=== PATIENT | female | born 1955 | race Caucasian/White ===

== ENCOUNTER → 2021-10-14 | Outpatient (CLI) | payer OTHER ==
[~2021-10-14] MED LIST: ALENDRONATE SOD35 MG PO; AMPDEX30CR; CLON.5; DULO60 PO; EUTHYROX88 MCG PO; FLONASE ALLERG9.9 M2; FLUTICASONE-SA1 EAC1 INH; Hydroxyzine HCl50 MG; LISI5; OMEP20ER PO; ONDA4ODT; OXYACE5T PO; Vitamin D1000 UNI1 PO
[2021-10-15 15:11] LABS: HPV 16 Negative (Negative); HPV 18 Negative (Negative); HPV OTHER HR TYPES Negative (Negative)
== END | disposition home or self-care (01) ==
LOC: LAB 15:45 → LAB SHORT 15:45
PROVIDERS: Family Medicine
DX: Z01.419 Encounter for gynecological examination (general) (routine) without abnormal findings (principal)
CPT/HCPCS: 87624; G0123

== ENCOUNTER 2021-10-16 06:23 | Day surgery (SDC) | payer OTHER ==
[~2021-10-16] VITALS: Ht 154.9 cm; Wt 71.3 kg
[~2021-10-16 06:23] MED LIST changes: -ALENDRONATE SOD35 MG PO; -AMPDEX30CR; -CLON.5; -DULO60 PO; -EUTHYROX88 MCG PO; -FLONASE ALLERG9.9 M2; -FLUTICASONE-SA1 EAC1 INH; -Hydroxyzine HCl50 MG; -LISI5; -OMEP20ER PO; -ONDA4ODT; -Vitamin D1000 UNI1 PO
[2021-10-16] MEDS ORDERED: Vitamin D1000 UNI1 PO (07:10)
[2021-10-16] MEDS ORDERED: ALENDRONATE SOD35 MG PO (07:10)
[2021-10-16] MEDS ORDERED: CLON.5 (07:11)
[2021-10-16] MEDS ORDERED: AMPDEX30CR (07:11)
[2021-10-16] MEDS ORDERED: DULO60 PO (07:11)
[2021-10-16] MEDS ORDERED: FLUTICASONE-SA1 EAC1 INH (07:12)
[2021-10-16] MEDS ORDERED: FLONASE ALLERG9.9 M2 (07:13)
[2021-10-16] MEDS ORDERED: LISI5 (07:15)
[2021-10-16] MEDS ORDERED: Hydroxyzine HCl50 MG (07:15)
[2021-10-16] MEDS ORDERED: EUTHYROX88 MCG PO (07:15)
[2021-10-16] MEDS ORDERED: OMEP20ER PO (07:16)
[2021-10-16] MEDS ORDERED: ONDA4ODT (07:16)
--- NOTE | 2021-10-16 07:39 | NUR ---
10/16/21 0739 Kaya Lowery S ATTEMPTS X3, ONE IN LEFT HAND, ONE IN LFA, WITH SUCCUSS IN LAC.
--- NOTE | 2021-10-16 08:28 | NUR ---
10/16/21 0828 Chanel Alfonso 1MG OF EPI ADDED TO FIRST BAG OF LR USED FOR JOINT IRRIGATION. 0.05ML OF EPI 1MG/ML ADDED TO 10ML OF BUPIVICAINE 0.5% TO CREATE A SOLUTION OF BUP[IVICAINE 0.5% WITH EPI 1:200,000.
== END 2021-10-16 10:10 | disposition home or self-care (01) ==
LOC: ORSCSDS 06:23
PROVIDERS: Orthopaedic Surgery
PROC: 0SBD4ZZ Excision of Left Knee Joint, Percutaneous Endoscopic Approach (ICD-10-PCS; principal; 2021-10-16 07:30)
DX: S83.232A Complex tear of medial meniscus, current injury, left knee, initial encounter (principal); M94.262 Chondromalacia, left knee; I10 Essential (primary) hypertension; Z87.891 Personal history of nicotine dependence; G47.33 Obstructive sleep apnea (adult) (pediatric); E03.9 Hypothyroidism, unspecified; M79.7 Fibromyalgia; Z79.899 Other long term (current) drug therapy; E78.5 Hyperlipidemia, unspecified
CPT/HCPCS: A9270; J0171; J0690; J1100; J2250; J2370; J2405; J2704; J3010; J7120

== ENCOUNTER → 2021-12-02 | Outpatient (CLI) | payer OTHER ==
[~2021-12-02] MED LIST changes: +ALENDRONATE SOD35 MG PO; +AMPDEX30CR; +CLON.5; +DULO60 PO; +EUTHYROX88 MCG PO; +FLONASE ALLERG9.9 M2; +FLUTICASONE-SA1 EAC1 INH; +Hydroxyzine HCl50 MG; +LISI5; +OMEP20ER PO; +ONDA4ODT; +Vitamin D1000 UNI1 PO
== END | disposition home or self-care (01) ==
LOC: LAB SHORT 16:24
DX: E03.9 Hypothyroidism, unspecified (principal)
CPT/HCPCS: 84443

== ENCOUNTER → 2022-08-12 | Outpatient (CLI) | payer OTHER ==
[2022-08-12 11:39] LABS: BASOPHILS ABSOLUTE AUTO 0.07 K/mm3 (0.00-0.23); BASOPHILS PERCENT AUTO 1 % (0-2); EOSINOPHILS ABSOLUTE AUTO 0.11 K/mm3 (0.00-0.68); EOSINOPHILS PERCENT AUTO 2 % (0-6); Hematocrit 43.4 % (33.0-51.0); Hemoglobin 14.9 g/dL (11.5-16.0); IMMATURE GRAN ABSOLUTE AUTO 0.01 K/mm3 (0.00-0.10); IMMATURE GRAN PERCENT AUTO 0 % (0-1); LYMPHOCYTES PERCENT AUTO 23 % (21-46); MONOCYTES ABSOLUTE AUTO 0.61 K/mm3 (0.16-1.47); MONOCYTES PERCENT AUTO 9 % (4-13); Mean Corpuscular HGB 31.2 pg (26.0-34.0); Mean Corpuscular HGB Conc 34.3 g/dL (31.5-36.5); Mean Corpuscular Volume 91 fL (80-100); Mean Platelet Volume 8.6 fL (9.1-12.4); NEUTROPHILS ABSOLUTE AUTO 4.23 K/mm3 (1.96-9.15); NEUTROPHILS PERCENT AUTO 65 % (41-73); Platelet Count 326 K/mm3 (150-400); RDW Coefficient Variation 12.3 % (11.7-14.2); RDW Standard Deviation 41.1 fL (35.1-46.3); Red Blood Cell Count 4.78 M/mm3 (3.80-5.20); White Blood Cell Count 6.53 K/mm3 (4.00-11.30)
[2022-08-12 12:15] LABS: Albumin, Blood 3.8 g/dL (3.4-5.0); Albumin/Globulin Ratio 1.2 (0.8-1.8); Bilirubin, Total 0.4 mg/dL (0.1-1.0); Bun/Creatinine Ratio 19.1 (12.0-20.0); Calcium, Blood 10.4 mg/dL (8.5-10.1); Creatinine, Blood 0.73 mg/dL (0.40-1.00); Globulin, Blood 3.2 g/dL (2.2-4.0)
== END | disposition home or self-care (01) ==
LOC: LAB 11:31 → LAB SHORT 11:31
PROVIDERS: Physician Assistant
DX: N39.0 Urinary tract infection, site not specified (principal); R10.9 Unspecified abdominal pain
CPT/HCPCS: 80053; 83690; 85025

== ENCOUNTER → 2022-12-08 | Outpatient (CLI) | payer OTHER ==
[2022-12-08 14:53] LABS: BASOPHILS ABSOLUTE AUTO 0.12 K/mm3 (0.00-0.23); BASOPHILS PERCENT AUTO 1 % (0-2); EOSINOPHILS ABSOLUTE AUTO 0.21 K/mm3 (0.00-0.68); EOSINOPHILS PERCENT AUTO 3 % (0-6); Hematocrit 43.5 % (33.0-51.0); Hemoglobin 14.4 g/dL (11.5-16.0); IMMATURE GRAN ABSOLUTE AUTO 0.02 K/mm3 (0.00-0.10); IMMATURE GRAN PERCENT AUTO 0 % (0-1); LYMPHOCYTES ABSOLUTE AUTO 1.67 K/mm3 (0.84-5.20); LYMPHOCYTES PERCENT AUTO 20 % (21-46); MONOCYTES ABSOLUTE AUTO 0.87 K/mm3 (0.16-1.47); MONOCYTES PERCENT AUTO 10 % (4-13); Mean Corpuscular HGB 30.9 pg (26.0-34.0); Mean Corpuscular HGB Conc 33.1 g/dL (31.5-36.5); Mean Corpuscular Volume 93 fL (80-100); Mean Platelet Volume 8.7 fL (9.1-12.4); NEUTROPHILS PERCENT AUTO 66 % (41-73); Platelet Count 376 K/mm3 (150-400); RDW Coefficient Variation 12.3 % (11.7-14.2); RDW Standard Deviation 42.6 fL (35.1-46.3); Red Blood Cell Count 4.66 M/mm3 (3.80-5.20); White Blood Cell Count 8.49 K/mm3 (4.00-11.30)
[2022-12-08 19:05] LABS: Albumin, Blood 3.8 g/dL (3.4-5.0); Albumin/Globulin Ratio 1.1 (0.8-1.8); Bilirubin, Total 0.3 mg/dL (0.1-1.0); Bun/Creatinine Ratio 16.6 (12.0-20.0); Calcium, Blood 10.3 mg/dL (8.5-10.1); Creatinine, Blood 0.84 mg/dL (0.40-1.00); Free Thyroxine 1.16 ng/dL (0.70-1.60); Globulin, Blood 3.4 g/dL (2.2-4.0); Potassium, Blood 3.8 mmol/L (3.5-5.5); Thyroid Stimulating Hormone 0.362 uIU/mL (0.360-4.800); Total Protein, Blood 7.2 g/dL (6.4-8.2)
== END ==
LOC: LAB 13:40 → LAB SHORT 13:40
PROVIDERS: Family Medicine
DX: E03.9 Hypothyroidism, unspecified (principal); R41.89 Other symptoms and signs involving cognitive functions and awareness; Z79.899 Other long term (current) drug therapy
CPT/HCPCS: 80053; 82607; 82746; 84439; 84443; 85025; 85651; 86592

== ENCOUNTER 2023-02-07 09:49 | Day surgery (SDC) | payer OTHER ==
[~2023-02-07] VITALS: Ht 154.9 cm; Wt 68.3 kg
[2023-02-07 10:37] VITALS: BP 150/94
[2023-02-07] MEDS ORDERED: PANTOPRAZOLE SO40 M2 PO (10:42)
--- NOTE | 2023-02-07 13:19 | NUR ---
02/07/23 1319 Tory Fairchild PILLOW UNDER HEAD, PILLOW UNDER HEAD, BOTH ARMS SECURED ON PADDED ARM BOARDS.
== END 2023-02-07 14:00 | disposition home or self-care (01) ==
LOC: ORSCSDS 09:49
PROVIDERS: Otolaryngology
PROC: 0HB3XZZ Excision of Left Ear Skin, External Approach (ICD-10-PCS; principal; 2023-02-07 11:30)
DX: D23.22 Other benign neoplasm of skin of left ear and external auricular canal (principal); I10 Essential (primary) hypertension; G47.33 Obstructive sleep apnea (adult) (pediatric); M79.7 Fibromyalgia; Z79.899 Other long term (current) drug therapy
CPT/HCPCS: 88305; J1100; J2250; J2704

== ENCOUNTER → 2023-03-15 | Outpatient (CLI) | payer OTHER ==
[~2023-03-15] MED LIST changes: +PANTOPRAZOLE SO40 M2 PO
[2023-03-30 10:42] LABS: HPV GENOTYPE 16 Not Detected; HPV GENOTYPE 18 Not Detected; HPV HIGH RISK Not Detected; HPV SOURCE Cervical
== END ==
LOC: LAB SHORT 16:30 → LAB 16:30
PROVIDERS: Family Medicine
DX: Z01.419 Encounter for gynecological examination (general) (routine) without abnormal findings (principal)
CPT/HCPCS: 87624; G0123

== ENCOUNTER → 2023-03-25 | Outpatient (CLI) | payer OTHER ==
[2023-03-30 08:32] LABS: APTIMA MEDIA TYPE Urine; C. TRACHOMATIS BY TMA Negative (Negative); N. GONORRHOEAE BY TMA Negative (Negative); SPECIMEN SOURCE Urine
== END ==
LOC: LAB SHORT 17:07 → LAB 17:07
PROVIDERS: Emergency Medicine
DX: N39.0 Urinary tract infection, site not specified (principal)
CPT/HCPCS: 87086; 87147; 87491; 87591

== ENCOUNTER → 2023-04-21 | Outpatient (CLI) | payer MEDICARE, OTHER ==
[2023-04-21 15:12] LABS: Source, Urine Voided
[2023-04-21 17:35] LABS: Bacteria Few /hpf; Hyaline Casts 0-2 /lpf (0-2); Red Blood Cells, Urine 0-2 /hpf (0-2); Squamous Epithelial Cells Few /hpf (Few); Transitional Epithelial Cells Rare /hpf (0-Rare)
== END ==
LOC: LAB 11:20 → LAB SHORT 11:20
PROVIDERS: Family Medicine
DX: R30.0 Dysuria (principal)
CPT/HCPCS: 81015; 87086

== ENCOUNTER 2023-08-15 07:46 | Day surgery (SDC) | payer MEDICARE, OTHER ==
[~2023-08-15] VITALS: Ht 149.9 cm; Wt 71.0 kg
[~2023-08-15 07:46] MED LIST changes: -AMPDEX30CR; +AMPDEX30CR PO; -CLON.5; +CLON.5 PO; +DOCU100 PO; -EUTHYROX88 MCG PO; -Hydroxyzine HCl50 MG; +Hydroxyzine HCl50 MG PO; +LEVOTHYROXINE88 MC9 PO; -LISI5; +LISI5 PO; +Lactated Ringer's 1,000 ML IV ONE; -ONDA4ODT; +ONDA4ODT PO
[2023-08-15] MEDS ORDERED: Lidocaine 2%-Epineph 1:200000 20 ML SDV ONE (07:55)
[2023-08-15] MEDS ORDERED: Midazolam HCl 1MG / ML 2ML Vial ONE ×2 (07:56→08:58)
[2023-08-15] MEDS ORDERED: Lactated Ringer's 1,000 ML IV ONE (08:12)
[2023-08-15] MEDS ORDERED: NS 50 ML IV ONE (08:16)
[2023-08-15] MEDS ORDERED: CeFAZolin Sodium 2,000 MG VIAL ONE (08:16)
--- NOTE | 2023-08-15 08:54 | NUR ---
08/15/23 0854 Henrietta Copeland TIME OUT PERFORMED AT 0844 AT BEDSIDE WITH CAESAR PORRAS AND DR BOLDEN. PREOP NERVE BLOCK STARTED AT 0844 AND COMPLETED AT 0850. PT TOLERATED PROCEDURE WELL. SPO2 WITH PATIENT ON 3L O2 VIA NC MONITORED THROUGHOUT PROCEDURE.
[2023-08-15] MEDS ORDERED: propofoL 20 ML IV ONE (09:01)
[2023-08-15 09:27] VITALS: BP 129/66
== END 2023-08-15 10:10 | disposition home or self-care (01) ==
LOC: ORSCSDS 07:46
PROVIDERS: Orthopaedic Surgery
PROC: 0LN70ZZ Release Right Hand Tendon, Open Approach (ICD-10-PCS; principal; 2023-08-15 09:15)
DX: M65.331 Trigger finger, right middle finger (principal); M65.341 Trigger finger, right ring finger; I12.9 Hypertensive chronic kidney disease with stage 1 through stage 4 chronic kidney disease, or unspecified chronic kidney disease; N18.9 Chronic kidney disease, unspecified; F32.A Depression, unspecified; E03.9 Hypothyroidism, unspecified; M79.7 Fibromyalgia; G47.9 Sleep disorder, unspecified; I10 Essential (primary) hypertension; F90.9 Attention-deficit hyperactivity disorder, unspecified type; K21.9 Gastro-esophageal reflux disease without esophagitis; Z79.899 Other long term (current) drug therapy
CPT/HCPCS: J0690; J2250; J2704; J7120

== ENCOUNTER 2024-04-10 15:55 | Observation (INO) | payer MEDICARE, OTHER ==
[~2024-04-10] VITALS: Ht 152.4 cm; Wt 72.4 kg
[~2024-04-10 15:55] MED LIST changes: -Lactated Ringer's 1,000 ML IV ONE
[2024-04-10 16:52] LABS: BASOPHILS ABSOLUTE AUTO 0.02 K/mm3 (0.00-0.23); BASOPHILS PERCENT AUTO 0 % (0-2); EOSINOPHILS ABSOLUTE AUTO 0.03 K/mm3 (0.00-0.68); EOSINOPHILS PERCENT AUTO 1 % (0-6); Hematocrit 42.4 % (33.0-51.0); Hemoglobin 14.7 g/dL (11.5-16.0); IMMATURE GRAN ABSOLUTE AUTO 0.01 K/mm3 (0.00-0.10); IMMATURE GRAN PERCENT AUTO 0 % (0-1); LYMPHOCYTES ABSOLUTE AUTO 1.35 K/mm3 (0.84-5.20); LYMPHOCYTES PERCENT AUTO 30 % (21-46); MONOCYTES ABSOLUTE AUTO 0.46 K/mm3 (0.16-1.47); MONOCYTES PERCENT AUTO 10 % (4-13); Mean Corpuscular HGB 31.7 pg (26.0-34.0); Mean Corpuscular HGB Conc 34.7 g/dL (31.5-36.5); Mean Corpuscular Volume 92 fL (80-100); Mean Platelet Volume 8.9 fL (9.1-12.4); NEUTROPHILS ABSOLUTE AUTO 2.58 K/mm3 (1.96-9.15); NEUTROPHILS PERCENT AUTO 58 % (41-73); Platelet Count 222 K/mm3 (150-400); RDW Coefficient Variation 11.9 % (11.7-14.2); RDW Standard Deviation 40.1 fL (35.1-46.3); Red Blood Cell Count 4.63 M/mm3 (3.80-5.20); White Blood Cell Count 4.45 K/mm3 (4.00-11.30)
[2024-04-10 17:14] LABS: Albumin, Blood 3.4 g/dL (3.4-5.0); Albumin/Globulin Ratio 0.9 (0.8-1.8); Bilirubin, Total 0.4 mg/dL (0.1-1.0); Bun/Creatinine Ratio 9.5 (12.0-20.0); Calcium, Blood 10.2 mg/dL (8.5-10.1); Creatinine, Blood 0.84 mg/dL (0.40-1.00); Globulin, Blood 3.8 g/dL (2.2-4.0); Potassium, Blood 4.1 mmol/L (3.5-5.5); Total Protein, Blood 7.2 g/dL (6.4-8.2)
[2024-04-10 20:02] LABS: Influenza B, PCR NEGATIVE (NEGATIVE); Resp Syncytial Virus, PCR NEGATIVE (NEGATIVE); SARS-Cov-2 (COVID-19) PCR, MMC NEGATIVE (NEGATIVE)
[2024-04-10] MEDS ORDERED: Ipratropium/Albuterol SulF 2.5-0.5MG/3 ML Amp INH ONE ×2 (20:35→23:05)
[2024-04-10] MEDS ORDERED: MethylPREDNISolone Sod Succ 125 MG Vial IV ONE (20:35)
[2024-04-10 21:31] LABS: Source, Urine Clean Catch
[2024-04-10 21:33] LABS: Appearance, Urine Clear (Clear); Bilirubin, Urine Neg (Neg); Blood, Urine Neg (Neg); Color, Urine Amber (P-Yellow); Glucose Qualitative, Urine Neg (Neg); Ketones, Urine Neg (Neg); Leukocyte Esterase, Urine 3+ (Neg); Nitrite, Urine Neg (Neg); Protein, Urine 1+ (Neg); Specific Gravity, Urine 1.015 (1.003-1.022); Urobilinogen, Urine 2+ (Normal)
[2024-04-10 21:39] LABS: Influenza A, PCR POSITIVE (NEGATIVE)
[2024-04-10 21:39] LABS: Bacteria Few /hpf; Red Blood Cells, Urine Not Seen /hpf (0-2); Squamous Epithelial Cells Few /hpf (Few)
[2024-04-10] MEDS ORDERED: CefTRIAXone Sodium 1,000 MG in NS 100 ML IV ONE (21:40)
[2024-04-10] MEDS ORDERED: Oseltamivir Phosphate 75 MG Cap PO ONE (21:50)
[2024-04-10] MEDS ORDERED: Ondansetron HCl 2 MG / ML 2ML Vial IV PRN (23:45)
[2024-04-10] MEDS ORDERED: FLU VACC TS2024-25(6MOS UP)/PF 45 MCG/0.5 ML SYRINGE IM ONE (23:45)
[2024-04-10] MEDS ORDERED: Melatonin 5 MG Tablet PO PRN (23:45)
[2024-04-10] MEDS ORDERED: Albuterol 2.5 MG/3 ML VIAL INH PRN (23:45)
[2024-04-11 00:32] VITALS: BP 125/64
[2024-04-11] MEDS ORDERED: Ipratropium/Albuterol SulF 2.5-0.5MG/3 ML Amp INH SCH (01:00)
[2024-04-11] MEDS ORDERED: Azithromycin 500 MG in NS 250 ML IV SCH (01:01)
[2024-04-11] MEDS ORDERED: ClonazePAM 0.5 MG Tab PO PRN (01:15)
--- NOTE | 2024-04-11 01:18 | NUR ---
PT ARRIVED TO ROOM 362 AT 0025 BY VF CorporationCHAIR UPHOLSTERER. REPORT RECEIVED FROM FRANDY MAYNARD. PT TRANSFERRED TO BED FROM [facility], ON 2 LO2. CONTINENT, SKIN CHECK PERFORMNED.
[2024-04-11] MEDS ORDERED: NS 250 ML IV PRN (01:30)
--- NOTE | 2024-04-11 03:24 | NUR ---
SHIFT SUMMARY PT AOX4, COOPERATIVE, ABLE TO MAKE NEEDS KNOWN. ARRIVED TO ROOM REQUIRING 2L O2, DURING SLEEP, THIS RN HAD TO INCREASE TO 4L TO KEEP O2 AT OR ABOVE 93%. PT WAS VERY ANXIOUS AND TALKATIVE, NOW IS ASLEEP. PT MAIN COMPLAINT TODAY WAS GRANDSON VERBALLY ABUSING PT AT HOME, IS DOCUMENTED IN ASSESSMENT. CONT PULSE OX ACTIVE. PT TRANSFERS SBA WITH WALKER TO BATHROOM. BED IN LOWEST POSITION, CALL LIGHT WITHIN REACH.
[2024-04-11 05:50] LABS: Hematocrit 38.6 % (33.0-51.0); Hemoglobin 13.3 g/dL (11.5-16.0); Mean Corpuscular HGB 31.4 pg (26.0-34.0); Mean Corpuscular HGB Conc 34.5 g/dL (31.5-36.5); Mean Corpuscular Volume 91 fL (80-100); Mean Platelet Volume 9.3 fL (9.1-12.4); Platelet Count 207 K/mm3 (150-400); RDW Coefficient Variation 11.9 % (11.7-14.2); RDW Standard Deviation 39.7 fL (35.1-46.3); Red Blood Cell Count 4.24 M/mm3 (3.80-5.20); White Blood Cell Count 3.33 K/mm3 (4.00-11.30)
[2024-04-11] MEDS ORDERED: Levothyroxine Sodium 0.088 MG Tab PO SCH (06:00)
[2024-04-11] MEDS ORDERED: Pantoprazole Sodium 40 MG Tab PO SCH (06:00)
[2024-04-11 06:43] LABS: BAND PERCENT MAN 8 % (0-8); BASOPHILS PERCENT MAN 0 % (0-2); EOSINOPHILS PERCENT MAN 0 % (0-6); LYMPHOCYTES ABSOLUTE MAN 0.16 K/mm3 (0.84-5.20); LYMPHOCYTES PERCENT MAN 5 % (21-46); MONOCYTES ABSOLUTE MAN 0.09 K/mm3 (0.16-1.47); MONOCYTES PERCENT MAN 3 % (4-13); NEUTROPHILS ABSOLUTE MAN 3.06 K/mm3 (1.96-9.15); SEG NEUTROPHILS PERCENT MAN 84 % (41-73); TOTAL CELLS COUNTED 100
[2024-04-11 07:21] VITALS: BP 137/75
[2024-04-11 08:15] LABS: Albumin/Globulin Ratio 0.8 (0.8-1.8); Bilirubin, Total 0.5 mg/dL (0.1-1.0); Bun/Creatinine Ratio 10.7 (12.0-20.0); Calcium, Blood 9.6 mg/dL (8.5-10.1); Creatinine, Blood 0.75 mg/dL (0.40-1.00); Globulin, Blood 3.8 g/dL (2.2-4.0); Potassium, Blood 4.1 mmol/L (3.5-5.5); Total Protein, Blood 6.8 g/dL (6.4-8.2)
[2024-04-11] MEDS ORDERED: DULoxetine HCL 30 MG Cap DR PO SCH (09:00)
[2024-04-11] MEDS ORDERED: Enoxaparin 40 MG/0.4 ML SYR SC SCH (09:00)
[2024-04-11] MEDS ORDERED: Lisinopril 5 MG Tab PO SCH (09:00)
[2024-04-11] MEDS ORDERED: Cholecalciferol 1000 Unit Tablet (=25MCG) PO SCH (09:00)
[2024-04-11] MEDS ORDERED: Oseltamivir Phosphate 75 MG Cap PO SCH (09:00)
[2024-04-11] MEDS ORDERED: Lactobacil 2-S.Thermo-Bifido 1 1 Cap PO SCH (09:00)
[2024-04-11] MEDS ORDERED: Fluticasone 0.05% Nasal Spray SCH (09:00)
--- NOTE | 2024-04-11 14:56 | NUR ---
SHIFT SUMMARY PT RESTING QUIETLY AT START OF SHIFT. WOKE EASILY FOR CARE. PT IN DROPLET ISO FOR INFLUENZA A. ON 2L N/C; RA AT BASELINE. PT RECEIVING IV ABX AND STEROIDS. LUNGS COARSE THRU OUT. UP WITH 1P ASSIST USING FWW TO BTHRM. MEDICATED FOR C/O ANXIETY X1. DR MOYA IN TO SEE PT THIS AM. ECHO AND BNP ORDERED. PT RESTING QUIETLY AT THIS TIME. CALL LT IN REACH.
[2024-04-11 15:18] VITALS: BP 114/63
[2024-04-11 20:19] VITALS: BP 113/67
[2024-04-11] MEDS ORDERED: CefTRIAXone Sodium 1,000 MG in NS 100 ML IV SCH (21:00)
--- NOTE | 2024-04-12 00:16 | NUR ---
PATIENT REPORTS RIGHT SIDED PAIN THAT HAS INCREASED OVER THE LAST COUPLE DAYS. PATIENT REQUESTING FOR PAIN CONTROL-PATIENT DOES NOT HAVE ANYTHING ORDERED AT THIS TIME.
--- NOTE | 2024-04-12 00:23 | NUR ---
HOSPITALIST CONTACTED. CALLED FOR PATIENTS RIGHT SIDED PAIN-DR. TONY ORDERED FOR TYLENOL Q4H PRN FOR PAIN.
[2024-04-12] MEDS ORDERED: Acetaminophen 325 MG TABLET PO PRN (00:25)
--- NOTE | 2024-04-12 05:04 | NUR ---
SHIFT SUMMARY. PATIENT REPORTS RIGHT SIDE PAIN-SEE PREVIOUS NOTES. PATIENT ABLE TO MAKE HER NEEDS KNOWN. PATIENT IS TALKATIVE. PATIENT AMBULATES WITH 1P ASSIST AND FWW. PATIENT CALLS APPROPRIATELY AND IS ABLE TO MAKE HER NEEDS KNOWN. ECHO IS ORDERED-HAS NOT BEEN COMPLETED D/T HOLIDAY. BED IS LOCKED IN THE LOWEST POSITION WITH CALL LIGHT IN REACH. CARE IS ONGOING.
[2024-04-12 06:04] VITALS: BP 121/73
[2024-04-12 07:38] VITALS: BP 141/82
--- NOTE | 2024-04-12 09:20 | NUR ---
AM ASSESSMENT: Pt resting in bed. Denies pain. LS with wheezing throughout. BT positive. HR reg. Pulses palp. Pt has slight non-productive cough. Currently on RA, biox >90%. Denies other needs. Call light in reach.
[2024-04-12 09:53] LABS: BASOPHILS ABSOLUTE AUTO 0.03 K/mm3 (0.00-0.23); BASOPHILS PERCENT AUTO 0 % (0-2); EOSINOPHILS ABSOLUTE AUTO 0.01 K/mm3 (0.00-0.68); EOSINOPHILS PERCENT AUTO 0 % (0-6); Hemoglobin 12.7 g/dL (11.5-16.0); IMMATURE GRAN ABSOLUTE AUTO 0.06 K/mm3 (0.00-0.10); IMMATURE GRAN PERCENT AUTO 1 % (0-1); LYMPHOCYTES ABSOLUTE AUTO 2.08 K/mm3 (0.84-5.20); LYMPHOCYTES PERCENT AUTO 28 % (21-46); MONOCYTES ABSOLUTE AUTO 0.51 K/mm3 (0.16-1.47); MONOCYTES PERCENT AUTO 7 % (4-13); Mean Corpuscular HGB 31.8 pg (26.0-34.0); Mean Corpuscular HGB Conc 34.3 g/dL (31.5-36.5); Mean Corpuscular Volume 93 fL (80-100); Mean Platelet Volume 9.3 fL (9.1-12.4); NEUTROPHILS ABSOLUTE AUTO 4.85 K/mm3 (1.96-9.15); NEUTROPHILS PERCENT AUTO 64 % (41-73); Platelet Count 285 K/mm3 (150-400); RDW Coefficient Variation 11.9 % (11.7-14.2); RDW Standard Deviation 40.9 fL (35.1-46.3); Red Blood Cell Count 3.99 M/mm3 (3.80-5.20); White Blood Cell Count 7.54 K/mm3 (4.00-11.30)
[2024-04-12 10:16] LABS: Calcium, Blood 9.7 mg/dL (8.5-10.1); Creatinine, Blood 0.67 mg/dL (0.40-1.00); Potassium, Blood 3.5 mmol/L (3.5-5.5)
--- NOTE | 2024-04-12 11:52 | NUR ---
Pt. is awake in bed when she welcomes my visit. Caregiver is present. Pt. is known to this electrotherapist from the community. Facilitated a life reveiw and the Pt. verbalized many trials the family has experienced. Listen with empathy and a calming presence. Pt. displayed evidence of being engaged and aware. Prayed for Pt. Pt. verbalized gratitude for the spiritual care visit.
--- NOTE | 2024-04-12 14:03 | NUR ---
ASSUMED CARE OF PATIENT. ALL NEEDS MET. CALL LIGHT IN REACH.
[2024-04-12 19:36] VITALS: BP 118/66
--- NOTE | 2024-04-12 19:48 | NUR ---
END OF SHIFT SUMMARY: A&Ox4. PLEASANT AND COOPERATIVE WITH CARE. CALLS APPROPRIATELY AND IS ABLE TO ADVOCATE NEEDS EFFECTIVELY. NO ACUTE CONCERNS TODAY. PLANS FOR DC TOMORROW; [facility] DELIVERED OXYGEN TODAY FOR TRANSPORT HOME. BED IN LOWEST POSITION, CALL LIGHT WITHIN REACH, ALL NEEDS MET. REPORT TO ONCOMING NURSE.
[2024-04-13 02:13] VITALS: BP 133/82
--- NOTE | 2024-04-13 05:41 | NUR ---
SHIFT SUMMARY. NO ACUTE CHANGES. PATIENT IS A&OX3-4, CALLS APPROPRIATELY AND IS ABLE TO MAKE HER NEEDS KNOWN. PATIENT SLEPT WELL T/O NIGHT. UP TO BATHROOM WITH 1P ASSIST AND WALKER. PLAN IS FOR PATIENT TO DISCHARGE TODAY 04/13/24. [facility] DELIVERED OXYGEN FOR TRANSPORT ON 04/12/24. PATIENT DENIES ANY NEEDS AT THIS TIME. BED IS LOCKED IN THE LOWEST POSITION WITH CALL LIGHT IN REACH. CARE IS ONGOING.
[2024-04-13 07:26] VITALS: BP 147/78
[2024-04-13] MEDS ORDERED: MELATONIN5 M1 PO (11:31)
[2024-04-13] MEDS ORDERED: JARDIANCE10 MG PO (11:32)
[2024-04-13] MEDS ORDERED: METO50ER PO (11:32)
[2024-04-13] MEDS ORDERED: OSEL75CA PO (11:32)
--- NOTE | 2024-04-13 13:34 | NUR ---
1300 DISCHARGE REIVEWED WITH PT AND GRANDSON, COORDINATE MEASURING MACHINE OPERATOR. VERBALIZED UNDERSTANDING MEDS AND INST. ALREADY HAS O2 IN ROOM FROM [facility]. IV PULLED BY CATERING DIRECTOR, NO TELE. PT OUT DOOR AT 1300
== END 2024-04-13 13:14 | disposition home or self-care (01) ==
LOC: ER 15:55 → ERHOLD 15:56 → MEDS 15:56 → ENPENDDIS 04-13 10:01 → MEDS 04-13 13:14
PROVIDERS: Family Medicine; Physician Assistant; Student in an Organized Health Care Education/Training Program; ADMIT Student in an Organized Health Care Education/Training Program
DX: J96.01 Acute respiratory failure with hypoxia (principal); J10.1 Influenza due to other identified influenza virus with other respiratory manifestations; N39.0 Urinary tract infection, site not specified; E11.9 Type 2 diabetes mellitus without complications; I10 Essential (primary) hypertension; E78.5 Hyperlipidemia, unspecified; E03.9 Hypothyroidism, unspecified; M79.7 Fibromyalgia; M81.0 Age-related osteoporosis without current pathological fracture; Z87.891 Personal history of nicotine dependence; Z79.890 Hormone replacement therapy; Z79.83 Long term (current) use of bisphosphonates; Z79.899 Other long term (current) drug therapy; Z88.2 Allergy status to sulfonamides; Z88.5 Allergy status to narcotic agent; Z88.8 Allergy status to other drugs, medicaments and biological substances; Z98.84 Bariatric surgery status; Z90.49 Acquired absence of other specified parts of digestive tract; Z90.710 Acquired absence of both cervix and uterus
CPT/HCPCS: 0241U; 36415; 71046; 80048; 80053; 81001; 83036; 83735; 83880; 84145; 84484; 85025; 85379; 87070; 87077; 87086; 87186; 87205; 93306; 94640; 94664; 94761; 94762; 96365; 96366; 96367; 96372; 96375; 97116; 97161; 97530; 99285-25; A9270; G0378; J0456; J0696; J1650; J2919; J7050

== ENCOUNTER 2024-05-14 23:28 | Emergency (ER) | payer MEDICARE, OTHER ==
[~2024-05-14] VITALS: Ht 152.4 cm; Wt 72.6 kg
[~2024-05-14 23:28] MED LIST changes: +JARDIANCE10 MG PO; +MELATONIN5 M1 PO; +METO50ER PO; +OSEL75CA PO
[2024-05-15 00:46] LABS: BASOPHILS ABSOLUTE AUTO 0.14 K/mm3 (0.00-0.23); BASOPHILS PERCENT AUTO 2 % (0-2); EOSINOPHILS ABSOLUTE AUTO 0.13 K/mm3 (0.00-0.68); EOSINOPHILS PERCENT AUTO 1 % (0-6); Hematocrit 44.5 % (33.0-51.0); Hemoglobin 14.9 g/dL (11.5-16.0); IMMATURE GRAN ABSOLUTE AUTO 0.03 K/mm3 (0.00-0.10); IMMATURE GRAN PERCENT AUTO 0 % (0-1); LYMPHOCYTES PERCENT AUTO 17 % (21-46); MONOCYTES ABSOLUTE AUTO 0.71 K/mm3 (0.16-1.47); MONOCYTES PERCENT AUTO 8 % (4-13); Mean Corpuscular HGB 32.1 pg (26.0-34.0); Mean Corpuscular HGB Conc 33.5 g/dL (31.5-36.5); Mean Corpuscular Volume 96 fL (80-100); Mean Platelet Volume 8.7 fL (9.1-12.4); NEUTROPHILS ABSOLUTE AUTO 6.64 K/mm3 (1.96-9.15); NEUTROPHILS PERCENT AUTO 72 % (41-73); Platelet Count 412 K/mm3 (150-400); RDW Coefficient Variation 12.9 % (11.7-14.2); RDW Standard Deviation 45.3 fL (35.1-46.3); Red Blood Cell Count 4.64 M/mm3 (3.80-5.20); White Blood Cell Count 9.25 K/mm3 (4.00-11.30)
[2024-05-15 00:58] LABS: Albumin, Blood 3.9 g/dL (3.4-5.0); Albumin/Globulin Ratio 1.1 (0.8-1.8); Bilirubin, Total 0.3 mg/dL (0.1-1.0); Bun/Creatinine Ratio 19.1 (12.0-20.0); Calcium, Blood 10.4 mg/dL (8.5-10.1); Creatinine, Blood 0.79 mg/dL (0.40-1.00); Globulin, Blood 3.7 g/dL (2.2-4.0); Potassium, Blood 4.3 mmol/L (3.5-5.5); Total Protein, Blood 7.6 g/dL (6.4-8.2)
[2024-05-15] MEDS ORDERED: NS 1,000 ML IV SCH (03:45)
[2024-05-15] MEDS ORDERED: Ondansetron HCl 2 MG / ML 2ML Vial IV ONE (03:50)
[2024-05-15] MEDS ORDERED: Pantoprazole Sodium 40 MG Injection IV ONE (03:50)
[2024-05-15] MEDS ORDERED: Mag Hydrox/AL Hydrox/Simeth 30 ML UDC PO ONE (05:10)
[2024-05-15] MEDS ORDERED: ONDA4ODT MM (06:27)
[2024-05-15 07:00] VITALS: BP 123/62
== END 2024-05-15 07:10 | disposition home or self-care (01) ==
LOC: ER 23:28
PROVIDERS: Emergency Medicine
DX: K92.0 Hematemesis (principal); K21.9 Gastro-esophageal reflux disease without esophagitis; Z87.11 Personal history of peptic ulcer disease; Z79.51 Long term (current) use of inhaled steroids; Z88.2 Allergy status to sulfonamides; Z91.048 Other nonmedicinal substance allergy status; Z88.5 Allergy status to narcotic agent; Z88.8 Allergy status to other drugs, medicaments and biological substances
CPT/HCPCS: 80053; 84484; 85025; 93005; 93010; 96374; 96375; 99284-25; A9270; J2405; J2470; J7030

== ENCOUNTER → 2025-02-26 | Outpatient (CLI) | payer MEDICARE, OTHER ==
[~2025-02-26] MED LIST changes: +ASCO500 PO; +ATOR10 PO; +Calcium Carbon500 MG PO; +FERSU300 PO; +FISH OIL 1,0001 EA10 PO; +GABA100 PO; +GLUC500 PO; -LEVOTHYROXINE88 MC9 PO; +LEVSOD75 PO; +LOSA25 PO; +MAGNESIUM GLU27.5 M1 PO; +METF500 PO; +MOBIC15 MG PO; +MULTI-VITAMIN1 EAC2 PO; +ONDA4ODT MM; +PROBIOTIC1 EA13 PO; +Prilosec10 M1 PO; +VITAMIN D31000 UNI1 PO; +ZINC15 PO; +ZYRTEC10 M2 PO
[2025-02-26 14:35] LABS: Source, Urine Clean Catch
[2025-02-26 15:39] LABS: Bilirubin, Urine Neg (Neg); Color, Urine Yellow (P-Yellow); Glucose Qualitative, Urine 4+ (Neg); Ketones, Urine Neg (Neg); Leukocyte Esterase, Urine 2+ (Neg); Protein, Urine Neg (Neg); Specific Gravity, Urine 1.015 (1.003-1.022); Urobilinogen, Urine NORM (Normal)
[2025-02-26 15:51] LABS: Red Blood Cells, Urine 0-2 /hpf (0-2)
== END ==
LOC: LAB 14:34 → LAB SHORT 14:34 → LAB FUT 02-26 14:35
PROVIDERS: Family Medicine
DX: N39.0 Urinary tract infection, site not specified (principal)
CPT/HCPCS: 81001; 87077; 87086; 87186